=== PATIENT | male | born 1995 | race Caucasian/White ===

== ENCOUNTER 2019-06-21 10:14 | Emergency (ER) | payer OTHER ==
[~2019-06-21] VITALS: Ht 180.3 cm; Wt 65.9 kg
[2019-06-21 17:30] VITALS: BP 122/63
== END 2019-06-21 18:10 | disposition home or self-care (01) ==
LOC: EMS 10:18
DX: F11.10 Opioid abuse, uncomplicated (principal); F17.210 Nicotine dependence, cigarettes, uncomplicated; F19.10 Other psychoactive substance abuse, uncomplicated
CPT/HCPCS: 99406